=== PATIENT | female | born 1990 | race Caucasian/White ===

== ENCOUNTER 2017-11-07 11:11 | Emergency (ER) | payer OTHER ==
[~2017-11-07] VITALS: Ht 165.1 cm; Wt 90.7 kg
[~2017-11-07 11:11] MED LIST: ATABEX PRENATAL1 TAB; FOLIC ACID1 MG
== END 2017-11-07 17:41 | disposition home or self-care (01) ==
LOC: ER 11:11
DX: O26.891 Other specified pregnancy related conditions, first trimester (principal); R10.2 Pelvic and perineal pain; N83.292 Other ovarian cyst, left side; Z34.81 Encounter for supervision of other normal pregnancy, first trimester